=== PATIENT | female | born 1970 | race African-American/Black ===

== ENCOUNTER 2016-11-18 12:57 | Emergency (ER) | payer MEDICAID ==
[~2016-11-18] VITALS: Ht 172.7 cm; Wt 70.0 kg
[2016-11-18] MEDS ORDERED: VISCOUS LIDOCAINE 2% 15 ML UDC PO PRN (14:45)
[2016-11-18] MEDS ORDERED: ACETAMINOPHEN WITH CODEINE 120-12MG/5ML UDC PO ONE (14:45)
[2016-11-18] MEDS ORDERED: DEXAMETHASONE 10MG/ML 1ML VIAL IM ONE (15:00)
[2016-11-18] MEDS ORDERED: SODIUM CHLORIDE 0.9% IRRIG SOLUTION 1000ML IR ONE (15:30)
[2016-11-18] MEDS ORDERED: METRONIDAZOLE 500 MG PREMIX 100 ML IV ONE (15:30)
[2016-11-18] MEDS ORDERED: CEFTRIAXONE SODIUM 1 G/VIAL IV ONE (15:30)
[2016-11-18] MEDS ORDERED: KETOROLAC 30MG/ML VIAL IV ONE (15:30)
[2016-11-18] MEDS ORDERED: SODIUM CHLORIDE 0.9% 1,000 ML IV NR (15:45)
[2016-11-18 16:34] LABS: HEMATOCRIT. 42.1 % (36.0-48.0); MEAN CORPUSCULAR HGB CONC 33.3 g/dL (31.0-37.0); MEAN CORPUSCULAR VOLUME 87.2 fL (81.0-99.0); PLATELET 262 x1000/uL (130-400); RED BLOOD CELL COUNT 4.83 mill/uL (4.2-5.4); WHITE BLOOD COUNT 16.2 x1000/uL (4.5-11.0)
[2016-11-18 16:45] LABS: ALANINE AMINOTRANSFERASE 20 IU/L (13-61); ALBUMIN 3.5 g/dL (3.4-5.0); ANION GAP 10; CALCIUM 8.7 mg/dL (8.5-10.1); CARBON DIOXIDE 30 mEq/L (21-32); CHLORIDE 104 mEq/L (98-107); INDEX HEMOLYSI 1 (1-3); INDEX ICTERIC 1 (1-4); INDEX LIPEMIC 1 (1-3); UREA NITROGEN BLOOD 9 mg/dL (7-21)
[2016-11-18 16:48] LABS: eGFR > 60 mL/min (>60)
[2016-11-18 17:13] LABS: PLATELET ESTIMATE NORMAL
[2016-11-18] MEDS ORDERED: LORAZEPAM 2MG/ML CPJ IV ONE (17:30)
[2016-11-19 04:45] VITALS: BP 124/78
== END 2016-11-19 06:50 | disposition home or self-care (01) ==
LOC: ER 14:15
DX: J02.9 Acute pharyngitis, unspecified (principal); Z88.0 Allergy status to penicillin; F17.200 Nicotine dependence, unspecified, uncomplicated; F12.10 Cannabis abuse, uncomplicated; Z59.0 Homelessness
CPT/HCPCS: 36415; 80053; 85007; 85027; 87070; 87430; 96365; 96375; 99284; J0696; J1885; J3490; J7030; Z7610

== ENCOUNTER 2018-03-25 23:02 | Emergency (ER) | payer MEDICAID ==
[~2018-03-25] VITALS: Ht 170.2 cm; Wt 73.0 kg
[2018-03-26 05:00] VITALS: BP 121/69
== END 2018-03-26 05:33 | disposition home or self-care (01) ==
LOC: ER 23:02
DX: S92.425A Nondisplaced fracture of distal phalanx of left great toe, initial encounter for closed fracture (principal); S80.02XA Contusion of left knee, initial encounter; S80.01XA Contusion of right knee, initial encounter; M54.2 Cervicalgia; F17.200 Nicotine dependence, unspecified, uncomplicated; Z88.0 Allergy status to penicillin; V23.9XXA Unspecified motorcycle rider injured in collision with car, pick-up truck or van in traffic accident, initial encounter; Y93.89 Activity, other specified; Y92.89 Other specified places as the place of occurrence of the external cause; Y99.8 Other external cause status
CPT/HCPCS: 73562; 73660; 99284

== ENCOUNTER 2018-05-31 02:45 | Emergency (ER) | payer MEDICAID | END 2018-05-31 03:52 | disposition left against medical advice (07) | LOC: ER 03:26 | DX: S63.106A Unspecified dislocation of unspecified thumb, initial encounter (principal); Z53.21 Procedure and treatment not carried out due to patient leaving prior to being seen by health care provider; X58.XXXA Exposure to other specified factors, initial encounter; Y93.89 Activity, other specified; Y92.89 Other specified places as the place of occurrence of the external cause; Y99.8 Other external cause status ==

== ENCOUNTER 2018-05-31 04:16 | Emergency (ER) | payer MEDICAID ==
[~2018-05-31] VITALS: Ht 172.7 cm; Wt 73.0 kg
[2018-05-31] MEDS ORDERED: IBUPROFEN 600MG TABLET PO ONE (07:00)
[2018-05-31 07:22] VITALS: BP 118/79
== END 2018-05-31 07:51 | disposition home or self-care (01) ==
LOC: ER 05:34
DX: S63.601A Unspecified sprain of right thumb, initial encounter (principal); F14.10 Cocaine abuse, uncomplicated; F12.10 Cannabis abuse, uncomplicated; F17.200 Nicotine dependence, unspecified, uncomplicated; Z88.0 Allergy status to penicillin; Y08.89XA Assault by other specified means, initial encounter; Y93.89 Activity, other specified; Y92.89 Other specified places as the place of occurrence of the external cause; Y99.8 Other external cause status
CPT/HCPCS: 73130; 81025; 99284

== ENCOUNTER 2018-09-13 09:34 | Emergency (ER) | payer MEDICAID | END 2018-09-13 11:19 | disposition left against medical advice (07) | LOC: ER 09:34 | DX: M79.10 Myalgia, unspecified site (principal); M25.569 Pain in unspecified knee; M25.571 Pain in right ankle and joints of right foot; Z53.21 Procedure and treatment not carried out due to patient leaving prior to being seen by health care provider ==

== ENCOUNTER 2018-09-16 01:56 | Emergency (ER) | payer MEDICAID ==
[~2018-09-16] VITALS: Ht 172.7 cm; Wt 72.5 kg
[2018-09-16 02:14] VITALS: BP 127/95
== END 2018-09-16 04:44 | disposition left against medical advice (07) ==
LOC: ER 01:56
DX: Z53.21 Procedure and treatment not carried out due to patient leaving prior to being seen by health care provider (principal)

== ENCOUNTER 2018-09-20 06:02 | Emergency (ER) | payer MEDICAID ==
[~2018-09-20] VITALS: Ht 172.7 cm; Wt 78.0 kg
[2018-09-20 06:23] VITALS: BP 150/96
== END 2018-09-20 09:48 | disposition left against medical advice (07) ==
LOC: ER 07:20
DX: H92.03 Otalgia, bilateral (principal); M79.641 Pain in right hand; Z53.21 Procedure and treatment not carried out due to patient leaving prior to being seen by health care provider

== ENCOUNTER 2018-10-07 13:48 | Emergency (ER) | payer MEDICAID ==
[~2018-10-07] VITALS: Ht 172.7 cm; Wt 78.0 kg
[2018-10-07] MEDS ORDERED: IBUPROFEN 600MG TABLET PO ONE (18:00)
[2018-10-07 19:08] LABS: CLARITY URINE CLEAR (CLEAR); COLOR URINE ORANGE (YELLOW); KETONES URINE NEGATIVE (NEGATIVE); LEUKOCYTE ESTERASE URINE 2+ (NEGATIVE); NITRITE URINE POSITIVE (NEGATIVE); OCCULT BLOOD URINE NEGATIVE (NEGATIVE); PROTEIN URINE 1+ (NEGATIVE); SPECIFIC GRAVITY URINE 1.019 (1.005-1.030)
[2018-10-07 19:53] VITALS: BP 158/88
== END 2018-10-07 19:59 | disposition home or self-care (01) ==
LOC: ER 14:37
DX: N39.0 Urinary tract infection, site not specified (principal); M65.4 Radial styloid tenosynovitis [de Quervain]; M79.18 Myalgia, other site; M25.562 Pain in left knee; M25.561 Pain in right knee; Y08.89XA Assault by other specified means, initial encounter; Y93.9 Activity, unspecified; Y92.9 Unspecified place or not applicable; R05 Cough; R09.81 Nasal congestion; F17.210 Nicotine dependence, cigarettes, uncomplicated
CPT/HCPCS: 29125; 81025; 99283

== ENCOUNTER 2018-10-12 01:12 | Emergency (ER) | payer MEDICAID ==
[~2018-10-12] VITALS: Ht 172.7 cm; Wt 75.0 kg
[2018-10-12 03:40] LABS: CHLORIDE 104 mEq/L (98-107)
[2018-10-12 03:52] LABS: BASOPHILS % 0.4 % (0.0-2.0); EOSINOPHILS % 0.2 % (0.0-5.0); HEMATOCRIT. 38.9 % (36.0-48.0); MEAN CORPUSCULAR HEMOGLOBIN 28.7 pg (28.0-32.0); MEAN CORPUSCULAR VOLUME 85.9 fL (81.0-99.0); MEAN PLATELET VOLUME 8.9 fl (7.4-10.4); MONOCYTES % 10.3 % (2.0-8.0); NEUTROPHILS % 75.1 % (40.0-76.0); PLATELET 218 x1000/uL (130-400); RED BLOOD CELL COUNT 4.53 mill/uL (4.2-5.4); RED CELL DISTRIBUTION WIDTH 13.1 % (11.6-14.6)
[2018-10-12 05:13] LABS: CLARITY URINE CLEAR (CLEAR); COLOR URINE YELLOW (YELLOW); KETONES URINE NEGATIVE (NEGATIVE); LEUKOCYTE ESTERASE URINE NEGATIVE (NEGATIVE); NITRITE URINE NEGATIVE (NEGATIVE); OCCULT BLOOD URINE NEGATIVE (NEGATIVE); PROTEIN URINE NEGATIVE (NEGATIVE); SPECIFIC GRAVITY URINE 1.014 (1.005-1.030); UROBILINOGEN URINE 0.2 E.U./dL (0.2-1.0)
[2018-10-12 05:32] LABS: *BARBITURATES SCREEN URINE NEGATIVE (NEGATIVE); *BENZODIAZEPINES SCREEN URINE NEGATIVE (NEGATIVE); PHENCYCLIDINE URINE SCREEN NEGATIVE (NEGATIVE)
[2018-10-12 05:33] LABS: *COCAINE SCREEN URINE NEGATIVE (NEGATIVE); METHADONE URINE SCREEN NEGATIVE (NEGATIVE); OPIATES URINE SCREEN NEGATIVE (NEGATIVE)
[2018-10-12 05:35] LABS: *AMPHETAMINES SCREEN URINE PRESUMTIVE POSITIVE (NEGATIVE); CANNABINOID URINE SCREEN PRESUMTIVE POSITIVE (NEGATIVE)
[2018-10-12 09:40] VITALS: BP 110/67
== END 2018-10-12 09:45 | disposition home or self-care (01) ==
LOC: ER 01:12
DX: F15.10 Other stimulant abuse, uncomplicated (principal); R05 Cough; R42 Dizziness and giddiness; F17.200 Nicotine dependence, unspecified, uncomplicated; Z88.0 Allergy status to penicillin
CPT/HCPCS: 36415; 70450; 71045; 80053; 80305; 81003; 85025; 93005; 99284; Z7610

== ENCOUNTER 2019-07-07 23:07 | Emergency (ER) | payer MEDICAID ==
[~2019-07-07] VITALS: Ht 170.2 cm; Wt 73.0 kg
[2019-07-07 23:28] VITALS: BP 131/94
[2019-07-08] MEDS ORDERED: HYDROCODONE/ACETAMINOPHEN 5/325MG TABLET PO ONE (00:30)
[2019-07-08] MEDS ORDERED: LIDOCAINE HCL/PF 1% 10 MG/ML 5ML VIAL IJ ONE (00:30)
[2019-07-08] MEDS ORDERED: BACITRACIN ZINC OINT UDPKT TOP ONE (00:30)
== END 2019-07-08 01:00 | disposition home or self-care (01) ==
LOC: ER 23:15
DX: S51.812A Laceration without foreign body of left forearm, initial encounter (principal); W18.39XA Other fall on same level, initial encounter; Y93.89 Activity, other specified; Y92.89 Other specified places as the place of occurrence of the external cause; Y99.8 Other external cause status; F17.290 Nicotine dependence, other tobacco product, uncomplicated; F12.10 Cannabis abuse, uncomplicated; Z88.0 Allergy status to penicillin
CPT/HCPCS: 99281